=== PATIENT | female | born 1945 | race Caucasian/White ===

== ENCOUNTER → 2017-10-02 16:26 | Outpatient (CLI) | payer MEDICARE, OTHER ==
[2014-04-17 07:33] VITALS: BMI 30.1
[~2017-10-02 16:26] MED LIST: BAYER CHEWABLE81 MG PO; HYDROCHLOROTH12.5 M1 PO; PAXIL20 MG PO; VITAMIN D31000 UNI2 PO
== END | disposition home or self-care (01) ==
LOC: D.MAMMO 11:15
DX: Z12.31 Encounter for screening mammogram for malignant neoplasm of breast (principal)

== ENCOUNTER → 2017-11-02 10:54 | Outpatient (CLI) | payer MEDICARE, OTHER ==
[2014-04-17 07:33] VITALS: BMI 30.1
== END | disposition home or self-care (01) ==
LOC: D.MAMMO 10:54
DX: N63.22 Unspecified lump in the left breast, upper inner quadrant (principal)

== ENCOUNTER 2018-01-08 08:00 | Outpatient (CLI) | payer MEDICARE, OTHER ==
[2014-04-17 07:33] VITALS: BMI 30.1
== END 2018-01-08 23:59 | disposition home or self-care (01) ==
LOC: D.US 08:00
DX: N64.4 Mastodynia (principal)

== ENCOUNTER 2018-05-03 08:00 | Outpatient (CLI) | payer MEDICARE, OTHER ==
[2014-04-17 07:33] VITALS: BMI 30.1
== END 2018-05-03 09:00 | disposition home or self-care (01) ==
LOC: D.MAMMO 08:00
DX: R92.8 Other abnormal and inconclusive findings on diagnostic imaging of breast (principal)

== ENCOUNTER → 2018-05-27 16:35 | Outpatient (CLI) | payer MEDICARE, OTHER ==
[2014-04-17 07:33] VITALS: BMI 30.1
== END | disposition home or self-care (01) ==
LOC: D.MAMMO 08:00
DX: R92.8 Other abnormal and inconclusive findings on diagnostic imaging of breast (principal)

== ENCOUNTER → 2018-09-20 15:30 | Outpatient (CLI) | payer MEDICARE, OTHER ==
[2014-04-17 07:33] VITALS: BMI 30.1
== END | disposition home or self-care (01) ==
LOC: D.MAMMO 10:00
PROVIDERS: ATTEND Family Medicine
DX: Z85.3 Personal history of malignant neoplasm of breast (principal)

== ENCOUNTER → 2019-01-19 22:02 | Outpatient (CLI) | payer MEDICARE, OTHER ==
[2014-04-17 07:33] VITALS: BMI 30.1
== END | disposition home or self-care (01) ==
LOC: D.LABREF 22:02
PROVIDERS: ATTEND Urology
DX: R82.90 Unspecified abnormal findings in urine (principal)

== ENCOUNTER → 2019-02-21 17:31 | Outpatient (CLI) | payer MEDICARE, OTHER ==
[2014-04-17 07:33] VITALS: BMI 30.1
== END | disposition home or self-care (01) ==
LOC: D.LABREF 17:31
PROVIDERS: ATTEND Urology
DX: R31.9 Hematuria, unspecified (principal)

== ENCOUNTER → 2019-03-30 18:22 | Outpatient (CLI) | payer MEDICARE, OTHER ==
[2014-04-17 07:33] VITALS: BMI 30.1
[~2019-03-30 18:22] MED LIST changes: +COZAAR50 MG PO; +FLUTICASONE PRO16 GM NASAL; +OXYBUTYNIN CHLOR5 M1 PO
== END | disposition home or self-care (01) ==
LOC: D.LABREF 18:22
PROVIDERS: ATTEND Urology
DX: R31.9 Hematuria, unspecified (principal)

== ENCOUNTER → 2019-04-13 19:31 | Outpatient (CLI) | payer MEDICARE, OTHER ==
[2014-04-17 07:33] VITALS: BMI 30.1
== END | disposition home or self-care (01) ==
LOC: D.LABREF 19:31
PROVIDERS: ATTEND Urology
DX: Z00.00 Encounter for general adult medical examination without abnormal findings (principal)

== ENCOUNTER → 2019-05-06 13:51 | Outpatient (CLI) | payer MEDICARE, OTHER ==
[2014-04-17 07:33] VITALS: BMI 30.1
== END | disposition home or self-care (01) ==
LOC: D.LABREF 13:51
PROVIDERS: ATTEND Urology
DX: D72.0 Genetic anomalies of leukocytes (principal); R31.9 Hematuria, unspecified

== ENCOUNTER 2019-06-02 06:50 | Day surgery (SDC) | payer MEDICARE, OTHER ==
[2019-05-31 15:21] LABS: BASOPHILS 0.3 % (0-2); EOSINOPHILS 2.6 % (0-7); HEMATOCRIT 38.5 % (36.0-48.0); HEMOGLOBIN 12.6 g/dL (12-16); LYMPHOCYTES 30.2 % (15-50); MCH 30.6 pg (26.0-34.0); MCHC 32.7 g/dL (31.0-37.0); MCV 93.4 fL (80.0-100.0); MEAN PLATELET VOLUME 9.7 fL (7.4-10.4); MONOCYTES 8.4 % (2-11); NEUTROPHILS 58.5 % (40-80); PLATELET COUNT 231 10x3/uL (130-400); RBC 4.12 10x6/uL (4.00-5.40); WBC 6.7 10x3/uL (4.8-10.8)
[2019-05-31 15:47] LABS: ANION GAP 10.7 mmol/L (8-16); CALCIUM 8.6 mg/dL (8.5-10.1); CARBON DIOXIDE 31.4 mmol/L (21.0-32.0); POTASSIUM - SERUM 3.1 mmol/L (3.5-5.1)
[~2019-06-02] VITALS: Ht 147.3 cm; Wt 69.9 kg
[2019-06-02 08:47] VITALS: BP 147/76; Ht 147.3 cm; Wt 69.9 kg
[2019-06-02 10:21] LABS: INR 1.02 (0.85-1.17); PROTIME 12.9 SECONDS (11.6-15.0)
[2019-06-02 10:22] LABS: APTT 27.6 SECONDS (22.8-39.4)
--- NOTE | 2019-06-02 13:41 | NUR ---
1322-REC'D FROM SURGERY. AWAKE AND ALERT WITHOUT COMPLAINTS OF PAIN.VSS. DRESSING TO BACK CDI.IV PATENT TO LEFT ARM AT KVO.CL IN EASY REACH. FRIEND AT BEDSIDE. FULL LIQUID TRAY TO ROOM.
--- NOTE | 2019-06-02 15:44 | NUR ---
1345-TOLERATED FULL LIQUID TRAY. DENIES PAIN.BELT AND DRESSING CDI TO ABD AND BACK. VSS. ABLE TO AMBULATE WITH SLOW STEADY GAIT TO RESTROOM AND URINATE WITHOUT COMPLICATIONS. REMOVED IV FROM LEFT ARM WITH CATH INTACT, DISPOSED INTO SHARPS,COVERED SITE WITH COTTON BALL SECURED WITH TAPE.
--- NOTE | 2019-06-02 15:45 | NUR ---
1400-REVIEWED POST OPERATIVE INSTRUCTIONS AND FOLLOW UP APPOINTMENT WITH PT. VERBALIZED UNDERSTANDING WITHOUT FURTHER QUESTIONS OR CONCERNS.
--- NOTE | 2019-06-02 15:46 | NUR ---
1415- DISCHARGE CRITERIA MET.ESCORTED PT OUT VIA W/C WITH SISTER AWAITING TO DRIVE HOME.STABLE,BELT IN PLACE TO ABD CDI,DRESSING CDI.
--- NOTE | 2019-06-02 16:18 | OP ---
PATIENT NAME: NORI TINSLEY MEDICAL RECORD: [id number] :45 [facility] DATE: SURGEON: DENIS DE LA GARZA MD DATE OF OPERATION: 06/02/2019 SURGEON: Denis De La Garza MD ANESTHESIA: TIVA by Brenda Nash CRNA. DIAGNOSIS: Urge urinary incontinence. PROCEDURE: Axonics stage I. FINDINGS: Good fredrick reflex and toe flexion reflexes from channels 1 to 3 on the left S3 nerve root. ESTIMATED BLOOD LOSS: Minimal. CLINICAL HISTORY: This is a 74-year-old female, who has urge urinary incontinence. She tried Myrbetriq, which did work, but she cannot afford the medication. I then ordered oxybutynin and she cannot afford this. She is not interested in having intravesical Botox injection. Thus, we are trying sacral neuromodulation to try to control the symptoms. SHE IS ALLERGIC TO SULFA AND ADHESIVES. She was given Ancef conservation coordinator to the OR. DESCRIPTION OF PROCEDURE: The patient was placed in prone position and then prepped and draped. Under fluoroscopy, I marked out on the skin the level of the S3 foramen. Also, the line of the role of sacral foramina was marked out along the medial edge. This was done all under fluoroscopic guidance. The skin overlying the S2 foramen was then infiltrated with local anesthetic, which was 0.25% Marcaine with epinephrine. We then used spinal needle to get into the S3 foramen and S3 nerve root on each side. We tested the right side extensively and it did not provide as good response as the left side. Therefore, we decided to go with the left S3 nerve root. We made a small incision at the level of the skin adjacent to the needle. The stylet of the spinal needle was removed. An extra-long stylet was inserted. Once the extra-long stylet was then placed, then the spinal needle was removed entirely. Over the extra-long stylet, we inserted the trocar dilator. The tip of the trocar dilator sheath was placed at the mid sacral level. This was on the lateral view. The extra-long stylet and the dilator were removed, leaving the sheath in place. We then introduced a curved permanent electrode. The curve was placed so that the lead points laterally. Initially, we placed it into the sheath and down adjacent to the nerve with channel number 3 being at the level of the anterior plate of the sacral bone. We tested the channels in sequence. Channel 0 did not give any response. Channel 1 initially did not give any response in this position. Only channel 3 gave an adequate response. Under fluoroscopic guidance, we pulled the lead back so that channel 2 would be where channel 3 was. This gave a far more satisfactory response, but only channel 2 and 3 were responding in this case. Finally, we pulled back, so that channel 1 is adjacent to the anterior plate of the sacral bone. Now, we had adequate response in channels 1, 2 and 3. There was never a response to channel 0. At this point, the patient's permanent pacemaker implantation site was marked out about 4 cm distal or caudad to the iliac crest on the right side. A small 1 cm incision was made here. The tunneling device was used to bring the distal end of the permanent electrode from its insertion into the sacral foramen, into this new site in the right OPERATIVE REPORT [id number] NORI TINSLEY iliac crest region. Here the distal end of the lead was then connected to the temporary test electrode. A tunneling device was again used to bring the end of the temporary test electrode out through a separate skin incision. The wounds were then irrigated out with normal saline. A conduction testing revealed that there were no short circuits in any of the leads. There were no open circuits in any of leads except for channel 0. Channel 0 has electrical contact, but there is no response in terms of voltage potentials or current being applied. The site of the connection between the permanent and temporary electrodes was buried in the subcutaneous fat and the incision near the right iliac crest. A 2 layer closure was done here with the first layer being of 3-0 Vicryl. This brought the subcutaneous fat together. Then, a running subcuticular stitch was placed with 4-0 Monocryl to close this incision. The rest of the skin incisions were closed using simple interrupted 4-0 Monocryl. The patient will be keeping a voiding diary. I will see her in followup next week to check on her response to the sacral neuromodulation. TRANSINT:[id number] Voice Confirmation ID: [id number] DOCUMENT ID: [id number] DENIS DE LA GARZA MD at 1614 CC: [id number] DICTATION DATE: 06/02/19 1523 WHEEL ASSEMBLER: 06/02/19 1525 [facility] SDC 06/02/19 [facility] [address] [place] [address]
== END 2019-06-02 14:15 | disposition home or self-care (01) ==
LOC: D.OPS 06:50 → D.PAN 12:00 → D.OPS 12:00 → D.PAN 12:50 → D.OPS 14:15
PROVIDERS: Anesthesiology; ATTEND Urology
DX: N39.41 Urge incontinence (principal); I10 Essential (primary) hypertension; K80.20 Calculus of gallbladder without cholecystitis without obstruction

== ENCOUNTER → 2019-06-08 18:38 | Outpatient (CLI) | payer MEDICARE, OTHER ==
[2019-06-02 08:47] VITALS: BMI 32.2
== END | disposition home or self-care (01) ==
LOC: D.LABREF 18:38
PROVIDERS: ATTEND Urology
DX: R31.9 Hematuria, unspecified (principal)

== ENCOUNTER 2019-06-09 05:24 | Day surgery (SDC) | payer MEDICARE, OTHER ==
[~2019-06-09] VITALS: Ht 147.3 cm; Wt 69.4 kg
[2019-06-09 05:39] LABS: HEMATOCRIT 38.5 % (36.0-48.0); HEMOGLOBIN 12.3 g/dL (12-16); MCH 29.9 pg (26.0-34.0); MCHC 31.9 g/dL (31.0-37.0); MCV 93.7 fL (80.0-100.0); MEAN PLATELET VOLUME 9.1 fL (7.4-10.4); RBC 4.11 10x6/uL (4.00-5.40); RDW 13.9 % (11.5-14.5); WBC 6.1 10x3/uL (4.8-10.8)
[2019-06-09 06:28] VITALS: BP 162/77; Ht 147.3 cm; Wt 69.4 kg
--- NOTE | 2019-06-09 09:28 | NUR ---
0901-REC'D FROM RR. AWAKE AND ALERT.VSS. DRESSINGS X TO BACK AND UPPER GM CDI. IV PATENT TO RIGHT WRIST CDI. COFFEE AT BEDSIDE. CL IN EASY REACH,SISTER AT BEDSIDE.
--- NOTE | 2019-06-09 09:29 | NUR ---
0960-FULL LIQUID TRAY TO ROOM.
--- NOTE | 2019-06-09 10:18 | OP ---
PATIENT NAME: NORI TINSLEY MEDICAL RECORD: [id number] :45 [facility] DATE: SURGEON: DENIS DE LA GARZA MD DATE OF OPERATION: 06/09/2019 SURGEON: Denis De La Garza MD ANESTHESIA: General anesthesia by Thong Krueger CRNA. DIAGNOSIS: Urge urinary incontinence. PROCEDURES: Axonics stage II. BLOOD LOSS: None. CLINICAL HISTORY: This is a 74-year-old female with urge urinary incontinence. She failed medical therapy. She did not want to have intravesical Botox. She had an Axonics stage I trial last week and this was extremely successful. She no longer has any incontinence. She is able to sleep through the night with maybe nocturia times 1. She wished to proceed to the permanent implant. SHE IS ALLERGIC TO ADHESIVE TAPE AND SULFA. She was given Ancef logistics solution manager to the OR. DESCRIPTION OF PROCEDURE: The patient was given induction of general anesthesia in supine position. She was then placed into the prone position. She was then prepped and draped. There is an incision in the region close to the right iliac crest where the temporary electrode was connected to the permanent electrode. This incision was reopened after infiltrating the skin around the incision with local anesthetic, which is 0.25% Marcaine with epinephrine. The lead was fished out using a right angle clamp. The connection between the temporary electrode and the permanent electrode was disrupted by loosening the locking screw. The temporary lead was then entirely removed. The permanent electrode was then inserted into the pacemaker and the connection was tightened by tightening down the locking screw. A torque-limiting screwdriver was used to make this connection. A subcutaneous pocket was then made medial to the incision. Using the blade over an Army-Sullivan retractor. The pacemaker was then slid underneath this retractor blade into the subcutaneous pocket. We then performed telemetry on the unit and everything was functioning properly and the leads were conducting properly. The wound was then washed with normal saline and a 2-layer closure was performed. The first layer was of simple interrupted 3-0 Vicryl. The second layer was of running subcuticular 4-0 Monocryl. A Band-Aid was applied over the incision. I will see the patient in followup next week to check on the wound healing. TRANSINT:[id number] Voice Confirmation ID: [id number] DOCUMENT ID: [id number] DENIS DE LA GARZA MD at 1018 CC: [id number] DICTATION DATE: 06/09/1942 PET WALKER: 06/09/19928 [address] [place] [address]
--- NOTE | 2019-06-09 10:48 | NUR ---
1000-DISCHARGE CRITERIA MET. REMOVED IV FROM RIGHT WRIST WITH CATH INTACT. DISPOSED INTO SHARPS,COVERED SITE WITH BANDAID,SECURED WITH MEDIPORE TAPE. AWAITING FOR STIMULATOR TEAM TO REVIEW INFORMATION WITH PT.
--- NOTE | 2019-06-09 10:51 | NUR ---
1017-REVIEWED POST OPERATIVE INSTRUCTIONS AND FOLLOW APPOINTMENT WITH PT. VERBALIZED UNDERSTANDING. CONTINUE TO AWAIT FOR STIMULATOR TEAM TO REVIEW WITH PT. VSS.CL IN EASY REACH. SISTER AT BEDSIDE.
== END 2019-06-09 10:47 | disposition home or self-care (01) ==
LOC: D.OPS 05:24 → D.PAN 07:30 → D.OPS 10:47
PROVIDERS: Anesthesiology; ATTEND Urology
DX: N39.41 Urge incontinence (principal); I10 Essential (primary) hypertension

== ENCOUNTER 2020-01-18 16:06 | Emergency (ER) | payer MEDICARE, OTHER ==
[~2020-01-18] VITALS: Ht 147.3 cm; Wt 69.5 kg
[2020-01-18 16:17] VITALS: Ht 147.3 cm; Wt 69.5 kg
[2020-01-18] MEDS ORDERED: NAPROSYN500 MG PO (17:43)
[2020-01-18 18:06] VITALS: BP 165/61
== END 2020-01-18 18:06 | disposition home or self-care (01) ==
LOC: D.ER 16:06
DX: M25.561 Pain in right knee (principal); S89.91XA Unspecified injury of right lower leg, initial encounter; V89.2XXA Person injured in unspecified motor-vehicle accident, traffic, initial encounter; Y93.9 Activity, unspecified; Y92.9 Unspecified place or not applicable; I10 Essential (primary) hypertension

== ENCOUNTER 2020-02-02 18:45 | Inpatient (IN) | payer MEDICARE, OTHER ==
[~2020-02-02] VITALS: Ht 147.3 cm; Wt 69.4 kg
[~2020-02-02 18:45] MED LIST changes: +NAPROSYN500 MG PO
[2020-02-02 20:21] LABS: BASOPHILS 0.3 % (0-2); EOSINOPHILS 4.4 % (0-7); IMMATURE GRANULOCYTES 0.1 % (0-5); LYMPHOCYTES 23.7 % (15-50); MCH 29.6 pg (26.0-34.0); MCHC 31.4 g/dL (31.0-37.0); MCV 94.3 fL (80.0-100.0); MEAN PLATELET VOLUME 9.4 fL (7.4-10.4); MONOCYTES 11.1 % (2-11); NEUTROPHILS 60.4 % (40-80); RBC 3.71 10x6/uL (4.00-5.40); RDW 13.1 % (11.5-14.5); WBC 7.8 10x3/uL (4.8-10.8)
[2020-02-02 20:35] LABS: ANION GAP 10.3 mmol/L (8-16); CALCIUM 8.2 mg/dL (8.5-10.1); CARBON DIOXIDE 30.1 mmol/L (21.0-32.0); CREATININE - SERUM 0.8 mg/dL (0.6-1.3); POTASSIUM - SERUM 3.4 mmol/L (3.5-5.1)
[2020-02-02 20:41] LABS: ALBUMIN 3.3 g/dL (3.4-5.0); BILIRUBIN - TOTAL 0.41 mg/dL (0.2-1.3); PROTEIN - SERUM 6.9 g/dL (6.4-8.2)
[2020-02-02 20:48] LABS: PLATELET COUNT 293 10x3/uL (130-400)
[2020-02-02 21:00] VITALS: BP 177/86
[2020-02-02 22:33] VITALS: BP 161/74
--- NOTE | 2020-02-02 23:00 | NUR ---
PATIENT ARRIVE ON FLOOR VIA WHEELCHAIR. NO S/S OF ACUTE DISTRESS. NO C/O AT THIS TIME. PATIENT HAS LEFT FOREARM, SALINE LOC. IV IS PATENT WITHOUT REDNESS, SWELLING, OR TENDERNESS. PATIENT RIGHT LOWER LEG IS RED AND HAS EDEMA. CALL LIGHT WITHIN REACH. WILL CONTINUE TO MONITOR.
[2020-02-02 23:10] VITALS: BP 137/66; BMI 32.0
[2020-02-03] VITALS: BP 137/66
--- NOTE | 2020-02-03 02:04 | NUR ---
I have reviewed this patient and I concur with the Shift Assessment completed by the Licensed Practical Nurse today this shift.
[2020-02-03 04:00] VITALS: BP 110/59
[2020-02-03 05:57] LABS: BASOPHILS 0.3 % (0-2); EOSINOPHILS 3.9 % (0-7); HEMOGLOBIN 9.9 g/dL (12-16); IMMATURE GRANULOCYTES 0.2 % (0-5); LYMPHOCYTES 23.6 % (15-50); MCH 29.3 pg (26.0-34.0); MCHC 30.9 g/dL (31.0-37.0); MCV 94.7 fL (80.0-100.0); MEAN PLATELET VOLUME 9.5 fL (7.4-10.4); MONOCYTES 9.7 % (2-11); NEUTROPHILS 62.3 % (40-80); PLATELET COUNT 302 10x3/uL (130-400); RBC 3.38 10x6/uL (4.00-5.40); RDW 13.4 % (11.5-14.5); WBC 5.9 10x3/uL (4.8-10.8)
[2020-02-03 07:08] LABS: % SATURATION 13 % (15-55); IRON 34 ug/dl (35-150); TOTAL IRON BIND CAPACITY 249 ug/dl (260-445); UNSAT IRON BIND CAPACITY 215 ug/dl (150-375)
[2020-02-03 07:13] LABS: ALBUMIN 2.7 g/dL (3.4-5.0); ANION GAP 10.5 mmol/L (8-16); BILIRUBIN - TOTAL 0.44 mg/dL (0.2-1.3); CALCIUM 7.9 mg/dL (8.5-10.1); CARBON DIOXIDE 30.1 mmol/L (21.0-32.0); CREATININE - SERUM 0.8 mg/dL (0.6-1.3); POTASSIUM - SERUM 3.6 mmol/L (3.5-5.1); PROTEIN - SERUM 5.8 g/dL (6.4-8.2)
--- NOTE | 2020-02-03 07:15 | NUR ---
REC'D IN BED AWAKE AND ALERT. RESP EVEN AND UNLABORED WITH NO DISTRESS NOTED. CAN EXPRESS NEEDS AND WANTS. NO C/O NOTED OR VOICED. ASSESSMENT COMPLETED. STAND BY ASSISTANCE TO BATHROOM. C/L IN REACH AT BEDSIDE.
[2020-02-03 08:55] VITALS: BP 136/66
[2020-02-03 12:29] LABS: GLUCOSE NEGATIVE (NEGATIVE); NITRITE NEGATIVE (NEGATIVE)
[2020-02-03 12:30] LABS: BILIRUBIN NEGATIVE (NEGATIVE); KETONE NEGATIVE (NEGATIVE); UROBILINOGEN NORMAL (NORMAL)
[2020-02-03 12:31] LABS: EPITHELIAL CELLS 0-5 /hpf (0-5); RED CELLS - URINE 0-5 /hpf (0-5); WHITE CELLS - URINE 0-5 /hpf (NEGATIVE)
[2020-02-03 12:32] LABS: AMORPHOUS SEDIMENT >1+ /lpf (NONE SEEN)
[2020-02-03 13:05] VITALS: BP 114/53
--- NOTE | 2020-02-03 15:44 | NUR ---
WAS MEDICATED WITH MORPHINE FOR C/O RIGHT LEG PAIN. C/L IN REACH AT BEDSIDE.
[2020-02-03 16:57] VITALS: BP 131/67
--- NOTE | 2020-02-03 18:45 | NUR ---
I have reviewed this patient and I concur with the Shift Assessment completed by the Licensed Practical Nurse today this shift.
[2020-02-03 22:06] VITALS: BP 162/52
[2020-02-04] VITALS: BP 139/56
[2020-02-04 04:00] VITALS: BP 153/64
--- NOTE | 2020-02-04 04:38 | NUR ---
I have reviewed this patient and I concur with the Shift Assessment completed by the Licensed Practical Nurse today this shift.
[2020-02-04 06:13] LABS: BASOPHILS 0.2 % (0-2); EOSINOPHILS 3.7 % (0-7); HEMATOCRIT 32.3 % (36.0-48.0); HEMOGLOBIN 9.8 g/dL (12-16); IMMATURE GRANULOCYTES 0.2 % (0-5); LYMPHOCYTES 29.1 % (15-50); MCH 29.3 pg (26.0-34.0); MCHC 30.3 g/dL (31.0-37.0); MCV 96.4 fL (80.0-100.0); MEAN PLATELET VOLUME 9.3 fL (7.4-10.4); MONOCYTES 8.2 % (2-11); NEUTROPHILS 58.6 % (40-80); PLATELET COUNT 268 10x3/uL (130-400); RBC 3.35 10x6/uL (4.00-5.40); RDW 13.4 % (11.5-14.5); WBC 5.7 10x3/uL (4.8-10.8)
[2020-02-04 06:35] LABS: ALBUMIN 2.8 g/dL (3.4-5.0); ANION GAP 9.5 mmol/L (8-16); BILIRUBIN - TOTAL 0.47 mg/dL (0.2-1.3); CALCIUM 8.1 mg/dL (8.5-10.1); CARBON DIOXIDE 31.1 mmol/L (21.0-32.0); CREATININE - SERUM 0.9 mg/dL (0.6-1.3); POTASSIUM - SERUM 3.6 mmol/L (3.5-5.1)
--- NOTE | 2020-02-04 07:51 | NUR ---
ALERT AND ORIENTED. LUNGS CLEAR BILATERALLY. HEART SOUNDS S1 AND S2 HEARD IN ALL KELLER. BOWEL SOUNDS ACTIVE X 4. IV TO RFA PATENT WITHOUT REDNESS. CELLULITIS NOTED TO RLE. PROPPED IN PILLOWS X 3 WITH ICE PACKS. DENIES NEEDS. BED LOW. CALL ANDERSON AND PERSONAL ITEMS IN REACH. WILL CONTINUE TO MONITOR.
[2020-02-04 09:49] VITALS: BP 174/77
[2020-02-04 13:58] VITALS: BP 168/76
--- NOTE | 2020-02-04 14:15 | NUR ---
KPAD PLACED ON PATIENTS RIGHT LOWER LEG PER ORDER.
--- NOTE | 2020-02-04 16:13 | NUR ---
RESTING IN BED, NO DISTRESS NOTED, K PAD TO R LOWER LEG, CONT TO MONITOR PAIN, AND SWELLING
[2020-02-04 18:04] VITALS: BP 159/84
[2020-02-04 20:58] VITALS: BP 156/66
--- NOTE | 2020-02-05 00:20 | NUR ---
ALERT AND ORENTED X4 ABLE TO VOICE NEEDS AND WANTS TO STAFF. IV TO RIGHT FOREARM INTACT WITH NS PER ORDERS. UP WITH ASSIST. MORPHINR PRN FOR PAIN CONTROL. HAS LEFT BREAST REMOVED (OLD). FROM BREAST CANCER. ON ROOM AIR. RESTING IN BED AT THIS TIME WITH WATER AND CALL LIGHT IN REACH. NO NEEDS AT THIS TIME.
[2020-02-05 00:44] VITALS: BP 119/63
[2020-02-05 05:48] LABS: BASOPHILS 0.3 % (0-2); EOSINOPHILS 4.1 % (0-7); HEMATOCRIT 31.1 % (36.0-48.0); HEMOGLOBIN 9.7 g/dL (12-16); IMMATURE GRANULOCYTES 0.2 % (0-5); LYMPHOCYTES 22.6 % (15-50); MCH 29.8 pg (26.0-34.0); MCHC 31.2 g/dL (31.0-37.0); MCV 95.4 fL (80.0-100.0); MEAN PLATELET VOLUME 9.5 fL (7.4-10.4); MONOCYTES 9.2 % (2-11); NEUTROPHILS 63.6 % (40-80); PLATELET COUNT 263 10x3/uL (130-400); RBC 3.26 10x6/uL (4.00-5.40); RDW 13.3 % (11.5-14.5); WBC 5.8 10x3/uL (4.8-10.8)
[2020-02-05 06:00] LABS: ALBUMIN 2.8 g/dL (3.4-5.0); ALKALINE PHOSPHATASE 66 U/L (30-120); ALT (SGPT) 27 U/L (10-68); BILIRUBIN - TOTAL 0.41 mg/dL (0.2-1.3); CALC OSMOLALITY 284 mosm/kg (275-300); CARBON DIOXIDE 31.7 mmol/L (21.0-32.0); CHLORIDE - SERUM 107 mmol/L (98-107); CREATININE - SERUM 0.7 mg/dL (0.6-1.3); GLUCOSE 118 mg/dL (74-106); POTASSIUM - SERUM 3.3 mmol/L (3.5-5.1); SODIUM 143 mmol/L (136-145); eGFR NON AFRICAN AMERICAN 87 mL/min (90-120)
[2020-02-05 06:01] LABS: UREA NITROGEN 9 mg/dL (7-18)
--- NOTE | 2020-02-05 08:31 | NUR ---
RESTING IN BED, NO DISTRESS NOTED, IV INFUSING PER RFA, RIGHT LEG ELEVATED ON PILLOWS, REDDNESS AND EDEMA CONT
[2020-02-05 08:43] VITALS: BP 163/94
[2020-02-05 13:17] VITALS: BP 163/78
[2020-02-05 18:52] VITALS: BP 192/72
[2020-02-05 22:38] VITALS: BP 167/77
[2020-02-06 03:55] VITALS: BP 154/69
[2020-02-06 06:03] LABS: BASOPHILS 0.5 % (0-2); EOSINOPHILS 5.4 % (0-7); HEMATOCRIT 31.8 % (36.0-48.0); IMMATURE GRANULOCYTES 0.2 % (0-5); LYMPHOCYTES 28.4 % (15-50); MCH 29.2 pg (26.0-34.0); MCHC 31.4 g/dL (31.0-37.0); MEAN PLATELET VOLUME 9.2 fL (7.4-10.4); MONOCYTES 9.2 % (2-11); NEUTROPHILS 56.3 % (40-80); PLATELET COUNT 290 10x3/uL (130-400); RBC 3.42 10x6/uL (4.00-5.40); RDW 13.3 % (11.5-14.5); WBC 5.8 10x3/uL (4.8-10.8)
[2020-02-06 06:37] LABS: ALBUMIN 2.8 g/dL (3.4-5.0); ALKALINE PHOSPHATASE 67 U/L (30-120); ALT (SGPT) 24 U/L (10-68); BILIRUBIN - TOTAL 0.53 mg/dL (0.2-1.3); CALC OSMOLALITY 280 mosm/kg (275-300); CALCIUM 8.5 mg/dL (8.5-10.1); CARBON DIOXIDE 29.2 mmol/L (21.0-32.0); CHLORIDE - SERUM 107 mmol/L (98-107); CREATININE - SERUM 0.7 mg/dL (0.6-1.3); GLUCOSE 104 mg/dL (74-106); PROTEIN - SERUM 6.1 g/dL (6.4-8.2); SODIUM 142 mmol/L (136-145); UREA NITROGEN 7 mg/dL (7-18); eGFR NON AFRICAN AMERICAN 87 mL/min (90-120)
[2020-02-06 06:39] LABS: POTASSIUM - SERUM 3.1 mmol/L (3.5-5.1)
--- NOTE | 2020-02-06 07:23 | NUR ---
RECEIVED REPORT, ASSUMED CARE, UP TO BATHROOM, DENIES NEEDS, CALL LIGHT IN REACH, BREATHING EVEN UNLBAORED, NO S/S OF DISTRESS NOTED
[2020-02-06 09:10] VITALS: BP 135/64
[2020-02-06 10:55] VITALS: Ht 147.3 cm; Wt 69.4 kg
[2020-02-06 11:54] VITALS: BP 111/60
--- NOTE | 2020-02-06 16:20 | MORECARE ---
CASE MANAGEMENT DISCHARGE SUMMARY PATIENT: NORI TINSLEY UNIT: [id number] ADM DATE: 02/02/20 AGE: 74 : 45 SEX: F ROOM/BED: D.2227 AUTHOR: VICKEY TERRAZAS PHYSICIAN: REFERRING PHYSICIAN: SAGRARIO MENDIOLA MD DATE OF SERVICE: 02/06/20 Discharge Plan Patient Name: NORI TINSLEY Facility: [facility]:[place] : 1945 Planned Disposition: Anticipated Discharge Date: Discharge Date: Expected LOS: Initial Reviewer: [email or web address] Initial Review Date: 02/06/2020 Generated: 02/06/20 5:20 pm Patient Name: NORI TINSLEY Page [id number] at 1620 All edits/amendments must be made on the electronic document DICTATION DATE: 02/06/201619 FURNACE INSTALLER: LEONARD 02/06/201619 RPT#: [id number] DC DATE: STATUS: ADM IN [facility] [address] [place] [address] END OF REPORT
[2020-02-06 16:22] VITALS: BP 183/72
--- NOTE | 2020-02-06 16:27 | MORECARE ---
CASE MANAGEMENT DISCHARGE SUMMARY PATIENT: NORI TINSLEY UNIT: [id number] ADM DATE: 02/02/20 AGE: 74 : 45 SEX: F ROOM/BED: D.2227 AUTHOR: VICKEY TERRAZAS PHYSICIAN: REFERRING PHYSICIAN: SAGRARIO MENDIOLA MD DATE OF SERVICE: 02/06/20 Discharge Plan Patient Name: NORI TINSLEY Facility: [facility]:[place] : 1945 Planned Disposition: Anticipated Discharge Date: Discharge Date: Expected LOS: Initial Reviewer: [email or web address] Initial Review Date: 02/06/2020 Generated: 02/06/20 5:27 pm Comments DCP- Discharge Planning Updated by [email or web address]: Zaira Forbes on 02/06/20 3:[address] Patient Name: NORI TINSLEY Admission Status: ER Accout number: [id number] Admission Date: 02-02-2020 : 1945 Admission Diagnosis: Attending: VIOLA Current LOS: 4 Anticipated DC Date: Planned Disposition: Primary Insurance: MEDICARE A & B Discharge Planning Comments: CM met with patient at bedside after explaining CM role and obtaining verbal consent. CM discussed availability / needs of home health, REHAB and medical equipment. PATIENT DENIES ANY DISCHARGE NEEDS AT THIS TIME. IMM SIGNED. WILL RECHECK WITH PATIENT CLOSER TO DC FOR ANY OTHER NEEDS. Massage Operator: Zaira Forbes DCPIA - Discharge Planning Initial Assessment Updated by [email or web address]: Zaira Forbes on 02/06/20 4:25 pm * Is the patient Alert and Oriented? Yes * PCP [facility]ICKSON * Pharmacy [facility] * Preadmission Environment Home with Family * ADLs Independent * Equipment None * Community resources currently utilized None * Additional services required to return to the preadmission environment? No * Can the patient safely return to the preadmission environment? Yes * Has this patient been hospitalized within the prior 30 days at any hospital? No Last DP export: 02/06/20 3:20 p Patient Name: NORI TINSLEY Page [id number] at 1627 All edits/amendments must be made on the electronic document DICTATION DATE: 02/06/201626 FISH STRINGER ASSEMBLER: DM 02/06/201626 RPT#: [id number] DC DATE: STATUS: ADM IN [facility] [address] [place] [address] END OF REPORT
--- NOTE | 2020-02-06 16:36 | MORECARE ---
CASE MANAGEMENT DISCHARGE SUMMARY PATIENT: NORI TINSLEY UNIT: [id number] ADM DATE: 02/02/20 AGE: 74 : 45 SEX: F ROOM/BED: D.2227 AUTHOR: VICKEY TERRAZAS PHYSICIAN: REFERRING PHYSICIAN: SAGRARIO MENDIOLA MD DATE OF SERVICE: 02/06/20 Discharge Plan Patient Name: NORI TINSLEY Facility: [facility]:[place] : 1945 Planned Disposition: Anticipated Discharge Date: Discharge Date: Expected LOS: Initial Reviewer: [email or web address] Initial Review Date: 02/06/2020 Generated: 02/06/20 5:35 pm Comments DCP- Discharge Planning Updated by [email or web address]: Zaira Forbes on 02/06/20 3:[address] Patient Name: NORI TINSLEY Admission Status: ER Accout number: [id number] Admission Date: 02-02-2020 : 1945 Admission Diagnosis: Attending: VIOLA Current LOS: 4 Anticipated DC Date: Planned Disposition: Primary Insurance: MEDICARE A & B Discharge Planning Comments: CM met with patient at bedside after explaining CM role and obtaining verbal consent. CM discussed availability / needs of home health, REHAB and medical equipment. PATIENT DENIES ANY DISCHARGE NEEDS AT THIS TIME. IMM SIGNED. WILL RECHECK WITH PATIENT CLOSER TO DC FOR ANY OTHER NEEDS. Planer Operator / Grader: Zaira Forbes DCPIA - Discharge Planning Initial Assessment Updated by [email or web address]: Zaira Forbes on 02/06/20 4:25 pm * Is the patient Alert and Oriented? Yes * PCP ERICKSON * Pharmacy [facility] * Preadmission Environment Home with Family * ADLs Independent * Equipment None * Community resources currently utilized None * Additional services required to return to the preadmission environment? No * Can the patient safely return to the preadmission environment? Yes * Has this patient been hospitalized within the prior 30 days at any hospital? No Last DP export: 02/06/20 3:28 p Patient Name: NORI TINSLEY Page [id number] at 1636 All edits/amendments must be made on the electronic document DICTATION DATE: 02/06/201634 NIPPING MACHINE OPERATOR: DM 02/06/20 163 RPT#: [id number] DC DATE: STATUS: ADM IN [facility] [address] [place] [address] END OF REPORT
--- NOTE | 2020-02-06 18:33 | NUR ---
I have reviewed this patient and I concur with the Shift Assessment completed by the Licensed Practical Nurse today this shift.
[2020-02-06 20:00] VITALS: BP 168/78
[2020-02-07] VITALS: BP 155/62
[2020-02-07 04:00] VITALS: BP 156/63
[2020-02-07 04:53] LABS: BASOPHILS 0.5 % (0-2); EOSINOPHILS 5.1 % (0-7); HEMATOCRIT 33.3 % (36.0-48.0); HEMOGLOBIN 10.6 g/dL (12-16); IMMATURE GRANULOCYTES 0.2 % (0-5); MCH 29.4 pg (26.0-34.0); MCHC 31.8 g/dL (31.0-37.0); MCV 92.5 fL (80.0-100.0); MEAN PLATELET VOLUME 9.4 fL (7.4-10.4); MONOCYTES 10.9 % (2-11); NEUTROPHILS 58.3 % (40-80); PLATELET COUNT 298 10x3/uL (130-400); RDW 13.2 % (11.5-14.5); WBC 6.4 10x3/uL (4.8-10.8)
[2020-02-07 05:13] LABS: ANION GAP 10.4 mmol/L (8-16); BILIRUBIN - TOTAL 0.44 mg/dL (0.2-1.3); CALCIUM 8.3 mg/dL (8.5-10.1); CARBON DIOXIDE 27.9 mmol/L (21.0-32.0); POTASSIUM - SERUM 3.3 mmol/L (3.5-5.1); PROTEIN - SERUM 6.7 g/dL (6.4-8.2)
[2020-02-07 05:23] LABS: CREATININE - SERUM 0.9 mg/dL (0.6-1.3)
--- NOTE | 2020-02-07 07:35 | NUR ---
REC'D IN BED AWAKE AND ALERT. RESP EVEN AND UNLABORED WITH NO DISTESS NOTED. CAN EXPRESS NEEDS AND WANTS. NO C/O NOTED OR VOICED. ASSESSMENT COMPLETED. C/L IN REACH AT BEDSIDE.
[2020-02-07 09:17] VITALS: BP 176/87
--- NOTE | 2020-02-07 12:12 | NUR ---
I have reviewed this patient and I concur with the Shift Assessment completed by the Licensed Practical Nurse today this shift.
[2020-02-07 14:34] VITALS: BP 174/77
--- NOTE | 2020-02-07 15:00 | NUR ---
Nutrition follow-up: P receiving a regular diet with po intake 100% of some meals Labs reviewed WT: 153# PO intake good at this time RDN following.
[2020-02-07 17:56] VITALS: BP 170/73
--- NOTE | 2020-02-07 19:37 | NUR ---
A&O X 4. SUPINE IN BED. IV COVERED SO PT CAN SHOWER. PT AMBULATING INDEPENDENTLY. DENIES FURTHER NEEDS TRACIE, CTM.
[2020-02-07 20:00] VITALS: BP 182/70
[2020-02-08 04:00] VITALS: BP 149/61
--- NOTE | 2020-02-08 05:35 | NUR ---
I have reviewed this patient and I concur with the Shift Assessment completed by the Licensed Practical Nurse today this shift.
[2020-02-08 06:01] LABS: ALBUMIN 3.1 g/dL (3.4-5.0); ANION GAP 11.6 mmol/L (8-16); BILIRUBIN - TOTAL 0.39 mg/dL (0.2-1.3); CARBON DIOXIDE 26.7 mmol/L (21.0-32.0); CREATININE - SERUM 0.8 mg/dL (0.6-1.3); POTASSIUM - SERUM 3.3 mmol/L (3.5-5.1); PROTEIN - SERUM 6.4 g/dL (6.4-8.2)
[2020-02-08 06:31] LABS: BASOPHILS 0.4 % (0-2); EOSINOPHILS 6.4 % (0-7); HEMATOCRIT 33.6 % (36.0-48.0); HEMOGLOBIN 10.7 g/dL (12-16); IMMATURE GRANULOCYTES 0.2 % (0-5); LYMPHOCYTES 28.6 % (15-50); MCH 29.7 pg (26.0-34.0); MCHC 31.8 g/dL (31.0-37.0); MCV 93.3 fL (80.0-100.0); MEAN PLATELET VOLUME 9.7 fL (7.4-10.4); MONOCYTES 9.5 % (2-11); NEUTROPHILS 54.9 % (40-80); PLATELET COUNT 279 10x3/uL (130-400); RDW 13.5 % (11.5-14.5); WBC 5.5 10x3/uL (4.8-10.8)
--- NOTE | 2020-02-08 07:15 | NUR ---
REC'D IN BED AWAKE AND ALERT. RESP EVEN AND UNLABORED WITH NO DISTRESS NOTED. CAN EXPRESS NEEDS AND WANTS. NO C/O NOTED OR VOICED. ASSESSMENT COMPLETED. UP AB YOSELYN WITH STEADY GAIT. C/L IN REACH AT BEDSIDE.
[2020-02-08 09:01] VITALS: BP 182/86
[2020-02-08 13:36] VITALS: BP 183/74
[2020-02-08 18:41] VITALS: BP 184/69
--- NOTE | 2020-02-08 22:00 | NUR ---
PT ACCIDENTALLY PULLED OUT IV. CATH INTACT. ATTEMPTED TO RESITE X3, PT DOES NOT WITH TO HAVE AN IV. BYRON SINGLETARY CALLED FOR PO BENADRYL FOR RLE ITCHING AND SOMETHING TO HELP STOP DIARRHEA. NO FURTHER NEEDS, CTM.
[2020-02-08 22:20] VITALS: BP 171/68
--- NOTE | 2020-02-09 03:54 | NUR ---
I have reviewed this patient and I concur with the Shift Assessment completed by the Licensed Practical Nurse today this shift.
[2020-02-09 05:44] LABS: HEMOGLOBIN 10.6 g/dL (12-16); LYMPHOCYTES 29.8 % (15-50); MCH 29.7 pg (26.0-34.0); MCHC 32.1 g/dL (31.0-37.0); MCV 92.4 fL (80.0-100.0); MEAN PLATELET VOLUME 9.3 fL (7.4-10.4); NEUTROPHILS 58.4 % (40-80); PLATELET COUNT 287 10x3/uL (130-400); RBC 3.57 10x6/uL (4.00-5.40); RDW 13.3 % (11.5-14.5); WBC 5.5 10x3/uL (4.8-10.8)
[2020-02-09 06:03] LABS: ANION GAP 10.1 mmol/L (8-16); CALCIUM 8.4 mg/dL (8.5-10.1); CARBON DIOXIDE 27.1 mmol/L (21.0-32.0); CREATININE - SERUM 0.8 mg/dL (0.6-1.3); MAGNESIUM - SERUM 1.9 mg/dL (1.8-2.4)
[2020-02-09 06:21] LABS: POTASSIUM - SERUM 3.2 mmol/L (3.5-5.1)
--- NOTE | 2020-02-09 07:55 | NUR ---
REC'D SITTING ON SIDE OF BED AWAKE AND ALERT. RESP EVEN AND UNLABORED WITH NO DISTRESS NOTED. ASSESSMENT COMPLETED. NO C/O NOTED. C/L IN REACH AT BEDSIDE.
--- NOTE | 2020-02-09 07:55 | NUR ---
REC'D IN BED AWAKE AND ALERT. RESP EVEN AND UNLABORED WITH NO DISTRESS NOTED. CAN EXPRESS NEEDS AND WANTS, NO C/O NOTED OR VOICED. UP AB YOSELYN WALKS AROUND ROOM AND OUT IN THE HALLWAY. ASSESSMENT COMPLETED. C/L IN REACH AT BEDSIDE.
[2020-02-09 08:00] VITALS: BP 177/84
--- NOTE | 2020-02-09 10:00 | NUR ---
REFUSED K-PAD AT THIS TIME.
[2020-02-09 12:00] VITALS: BP 155/66
--- NOTE | 2020-02-09 13:59 | NUR ---
HAS BEEN UP IN ROOM. PATIENT IS WITHOUT DISTRESS.CALL LIGHT IN REACH
[2020-02-09 15:32] VITALS: BP 152/65
[2020-02-09] MEDS ORDERED: DOXYCYCLINE HY100 M2 PO (15:46)
[2020-02-09] MEDS ORDERED: ULTRAM50 MG PO (15:49)
--- NOTE | 2020-02-09 16:31 | MORECARE ---
CASE MANAGEMENT DISCHARGE SUMMARY PATIENT: NORI TINSLEY UNIT: [id number] ADM DATE: 02/02/20 AGE: 74 : 45 SEX: F ROOM/BED: D.2227 AUTHOR: NINI,DOC PHYSICIAN: REFERRING PHYSICIAN: SAGRARIO MENDIOLA MD DATE OF SERVICE: 02/09/20 Discharge Plan Patient Name: NORI TINSLEY Facility: [facility]:[place] : 1945 Planned Disposition: Anticipated Discharge Date: Discharge Date: Expected LOS: Initial Reviewer: [email or web address] Initial Review Date: 02/06/2020 Generated: 02/09/20 5:30 pm Comments DCP- Discharge Planning Updated by [email or web address]: Zaira Forbes on 02/09/20 3:[address] Patient Name: NORI TINSLEY Admission Status: ER Accout number: [id number] Admission Date: 02-02-2020 : 1945 Admission Diagnosis:CELLULITIS OF RIGHT LOWER LIMB Attending: VIOLA Current LOS: 7 Anticipated DC Date: Planned Disposition: Primary Insurance: MEDICARE A & B Discharge Planning Comments: SPOKE WITH PATIENT. DENIES ANY DC NEEDS. IMM SIGNED. SISTER IS ON HER WAY AND PATIENT ANTICIPATES DISCHARGE TODAY. Alternative Energy Engineer: Zaira Forbes DCP- Discharge Planning Updated by [email or web address]: Zaira Forbes on 02/06/20 3:[address] Patient Name: NORI TINSLEY Admission Status: ER Accout number: [id number] Admission Date: 02-02-2020 : 1945 Admission Diagnosis: Attending: VIOLA Current LOS: 4 Anticipated DC Date: Planned Disposition: Primary Insurance: MEDICARE A & B Discharge Planning Comments: CM met with patient at bedside after explaining CM role and obtaining verbal consent. CM discussed availability / needs of home health, REHAB and medical equipment. PATIENT DENIES ANY DISCHARGE NEEDS AT THIS TIME. IMM SIGNED. WILL RECHECK WITH PATIENT CLOSER TO DC FOR ANY OTHER NEEDS. Alternative Energy Engineer: Zaira Forbes DCPIA - Discharge Planning Initial Assessment Updated by [id number]: Zaira Forbes on 02/06/20 4:25 pm * Is the patient Alert and Oriented? Yes * PCP ERICKSON * Pharmacy [facility] * Preadmission Environment Home with Family * ADLs Independent * Equipment None * Community resources currently utilized None * Additional services required to return to the preadmission environment? No * Can the patient safely return to the preadmission environment? Yes * Has this patient been hospitalized within the prior 30 days at any hospital? No Coverage Notice Reviewer: [email or web address] Forbes Notice Issued Date-Time: 02/06/2020 16:45 Notice Type: IM Discharge Notice Notice Delivered To: Relationship to Patient: Rfid Strategist Name: Delivery Method: HAND - Hand Delivered Nichole Days: Prior Verbal Notification: Recipient Understood Notice: Yes Recipient Signature: Yes Med Rec Note Co-signed by Attending: Coverage Notice Comment: Reviewer: [email or web address] Devora Forbes Notice Issued Date-Time: 02/09/2020 16:22 Notice Type: IM Discharge Notice Notice Delivered To: Patient Relationship to Patient: Rfid Strategist Name: Delivery Method: HAND - Hand Delivered Nichole Days: Prior Verbal Notification: Recipient Understood Notice: Yes Recipient Signature: Yes Med Rec Note Co-signed by Attending: Coverage Notice Comment: Last DP export: 02/06/20 3:36 p Patient Name: NORI TINSLEY Page [phone] at 1631 All edits/amendments must be made on the electronic document DICTATION DATE: 02/09/20 163 SENIOR QA ENGINEER: LEONARD 02/09/20 163 RPT#: [id number] DC DATE: STATUS: ADM IN [facility] [address] [place] [address] END OF REPORT
--- NOTE | 2020-02-09 17:01 | MORECARE ---
CASE MANAGEMENT DISCHARGE SUMMARY PATIENT: NORI TINSLEY UNIT: [id number] ADM DATE: 02/02/20 AGE: 74 : 45 SEX: F ROOM/BED: D.2227 AUTHOR: NINI,DOC PHYSICIAN: REFERRING PHYSICIAN: SAGRARIO MENDIOLA MD DATE OF SERVICE: 02/09/20 Discharge Plan Patient Name: NORI TINSLEY Facility: [facility]:[place] : 1945 Planned Disposition: Anticipated Discharge Date: Discharge Date: Expected LOS: Initial Reviewer: [email or web address] Initial Review Date: 02/06/2020 Generated: 02/09/20 6:00 pm Comments DCP- Discharge Planning Updated by [email or web address]: Zaira Forbes on 02/09/20 3:[address] Patient Name: NORI TINSLEY Admission Status: ER Accout number: [id number] Admission Date: 02-02-2020 : 1945 Admission Diagnosis:CELLULITIS OF RIGHT LOWER LIMB Attending: VIOLA Current LOS: 7 Anticipated DC Date: Planned Disposition: Primary Insurance: MEDICARE A & B Discharge Planning Comments: SPOKE WITH PATIENT. DENIES ANY DC NEEDS. IMM SIGNED. SISTER IS ON HER WAY AND PATIENT ANTICIPATES DISCHARGE TODAY. Padding Gluer: Zaira Forbes DCP- Discharge Planning Updated by [email or web address]: Zaira Forbes on 02/06/20 3:[address] Patient Name: NORI TINSLEY Admission Status: ER Accout number: [id number] Admission Date: 02-02-2020 : 1945 Admission Diagnosis: Attending: VIOLA Current LOS: 4 Anticipated DC Date: Planned Disposition: Primary Insurance: MEDICARE A & B Discharge Planning Comments: CM met with patient at bedside after explaining CM role and obtaining verbal consent. CM discussed availability / needs of home health, REHAB and medical equipment. PATIENT DENIES ANY DISCHARGE NEEDS AT THIS TIME. IMM SIGNED. WILL RECHECK WITH PATIENT CLOSER TO DC FOR ANY OTHER NEEDS. Padding Gluer: Zaira Forbes DCPIA - Discharge Planning Initial Assessment Updated by [email or web address]: Zaira Forbes on 02/06/20 4:25 pm * Is the patient Alert and Oriented? Yes * PCP [facility]ICKSON * Pharmacy [facility] * Preadmission Environment Home with Family * ADLs Independent * Equipment None * Community resources currently utilized None * Additional services required to return to the preadmission environment? No * Can the patient safely return to the preadmission environment? Yes * Has this patient been hospitalized within the prior 30 days at any hospital? No External Providers External Provider: [facility] Next Contact Date: Service Request Date: Service Type: Resolution: Reviewer: Comments: Coverage Notice Reviewer: [email or web address] Forbes Notice Issued Date-Time: 02/06/2020 16:45 Notice Type: IM Discharge Notice Notice Delivered To: Relationship to Patient: Account Group Supervisor Name: Delivery Method: HAND - Hand Delivered Nichole Days: Prior Verbal Notification: Recipient Understood Notice: Yes Recipient Signature: Yes Med Rec Note Co-signed by Attending: Coverage Notice Comment: Reviewer: [email or web address] Forbes Notice Issued Date-Time: 02/09/2020 16:22 Notice Type: IM Discharge Notice Notice Delivered To: Patient Relationship to Patient: Account Group Supervisor Name: Delivery Method: HAND - Hand Delivered Nichloe Days: Prior Verbal Notification: Recipient Understood Notice: Yes Recipient Signature: Yes Med Rec Note Co-signed by Attending: Coverage Notice Comment: Last DP export: 02/09/20 3:31 p Patient Name: NORI TINSLEY Page [id number] at 1701 All edits/amendments must be made on the electronic document DICTATION DATE: 02/09/201699 STAMP PRESS OPERATOR: LEONARD 02/09/201699 RPT#: [id number] DC DATE: STATUS: ADM IN [facility] [address] [place] [address] END OF REPORT
--- NOTE | 2020-02-09 17:56 | NUR ---
DC HOME AT THIS TIME VOICE UNDERSTANDING OF DC ORDERS. NO IV. HAS ALL PERSONAL BELONGINGS. STABLE UPON DISCHARGE.
--- NOTE | 2020-02-10 10:07 | MORECARE ---
CASE MANAGEMENT DISCHARGE SUMMARY PATIENT: NORI TINSLEY UNIT: [id number] ADM DATE: 02/02/20 AGE: 74 : 45 SEX: F ROOM/BED: D.2227 AUTHOR: NINI,DOC PHYSICIAN: REFERRING PHYSICIAN: SAGRARIO MENDIOLA MD DATE OF SERVICE: 02/10/20 Discharge Plan Patient Name: NORI TINSLEY Facility: [facility]:[place] : 1945 Planned Disposition: Anticipated Discharge Date: Discharge Date: 02/09/2020 Expected LOS: Initial Reviewer: [email or web address] Initial Review Date: 02/06/2020 Generated: 02/10/20 11:06 am Comments DCP- Discharge Planning Updated by [email or web address]: Zaira Forbes on 02/09/20 3:[address] Patient Name: NORI TINSLEY Admission Status: ER Accout number: [id number] Admission Date: 02-02-2020 : 1945 Admission Diagnosis:CELLULITIS OF RIGHT LOWER LIMB Attending: VIOLA Current LOS: 7 Anticipated DC Date: Planned Disposition: Primary Insurance: MEDICARE A & B Discharge Planning Comments: SPOKE WITH PATIENT. DENIES ANY DC NEEDS. IMM SIGNED. SISTER IS ON HER WAY AND PATIENT ANTICIPATES DISCHARGE TODAY. Screw Cutter: Zaira Forbes DCP- Discharge Planning Updated by [email or web address]: Zaira Forbes on 02/06/20 3:[address] Patient Name: NORI TINSLEY Admission Status: ER Accout number: [id number] Admission Date: 02-02-2020 : 1945 Admission Diagnosis: Attending: VIOLA Current LOS: 4 Anticipated DC Date: Planned Disposition: Primary Insurance: MEDICARE A & B Discharge Planning Comments: CM met with patient at bedside after explaining CM role and obtaining verbal consent. CM discussed availability / needs of home health, REHAB and medical equipment. PATIENT DENIES ANY DISCHARGE NEEDS AT THIS TIME. IMM SIGNED. WILL RECHECK WITH PATIENT CLOSER TO DC FOR ANY OTHER NEEDS. Screw Cutter: Zaira Forbes DCPIA - Discharge Planning Initial Assessment Updated by [email or web address]: Zaira Forbes on 02/06/20 4:25 pm * Is the patient Alert and Oriented? Yes * PCP ER[facility]SON * Pharmacy [facility] * Preadmission Environment Home with Family * ADLs Independent * Equipment None * Community resources currently utilized None * Additional services required to return to the preadmission environment? No * Can the patient safely return to the preadmission environment? Yes * Has this patient been hospitalized within the prior 30 days at any hospital? No Coverage Notice Reviewer: [email or web address] Devora Forbes Notice Issued Date-Time: 02/06/2020 16:45 Notice Type: IM Discharge Notice Notice Delivered To: Relationship to Patient: Business Asst Name: Delivery Method: HAND - Hand Delivered Nichole Days: Prior Verbal Notification: Recipient Understood Notice: Yes Recipient Signature: Yes Med Rec Note Co-signed by Attending: Coverage Notice Comment: Reviewer: [email or web address] Devora Forbes Notice Issued Date-Time: 02/09/2020 16:22 Notice Type: IM Discharge Notice Notice Delivered To: Patient Relationship to Patient: Business Asst Name: Delivery Method: HAND - Hand Delivered Nichole Days: Prior Verbal Notification: Recipient Understood Notice: Yes Recipient Signature: Yes Med Rec Note Co-signed by Attending: Coverage Notice Comment: Last DP export: 02/09/20 4:01 p Patient Name: NORI TINSLEY Page [phone] at 1007 All edits/amendments must be made on the electronic document DICTATION DATE: 02/10/20 1006 TREASURY REPRESENTATIVE: LEONARD 02/10/20 1006 RPT#: [id number] DC DATE:02/09/20 STATUS: DIS IN [facility] [address] [place] [address] END OF REPORT
== END 2020-02-09 17:58 | disposition home or self-care (01) | DRG 603 ==
LOC: D.ER 18:45 → D.MS 20:54
PROVIDERS: Family Medicine; ADMIT Family Medicine; ATTEND Family Medicine
DX: L03.115 Cellulitis of right lower limb (principal); D64.9 Anemia, unspecified; E87.6 Hypokalemia; I10 Essential (primary) hypertension; K21.9 Gastro-esophageal reflux disease without esophagitis; F41.9 Anxiety disorder, unspecified; M85.80 Other specified disorders of bone density and structure, unspecified site; E55.9 Vitamin D deficiency, unspecified; N39.41 Urge incontinence; Z85.3 Personal history of malignant neoplasm of breast

== ENCOUNTER → 2020-03-02 07:39 | Outpatient (CLI) | payer MEDICARE, OTHER ==
[2020-02-06 10:55] VITALS: BMI 31.9
[~2020-03-02 07:39] MED LIST changes: +DOXYCYCLINE HY100 M2 PO; +ULTRAM50 MG PO
== END | disposition home or self-care (01) ==
LOC: D.MRI 07:39
PROVIDERS: ATTEND Clinical Nurse Specialist Family Health
DX: S80.10XA Contusion of unspecified lower leg, initial encounter (principal)

== ENCOUNTER 2020-03-12 09:10 | Day surgery (SDC) | payer MEDICARE, OTHER ==
[2020-03-09 10:15] LABS: HEMATOCRIT 40.3 % (36.0-48.0); HEMOGLOBIN 12.6 g/dL (12-16); MCH 28.9 pg (26.0-34.0); MCHC 31.3 g/dL (31.0-37.0); MCV 92.4 fL (80.0-100.0); MEAN PLATELET VOLUME 9.7 fL (7.4-10.4); RBC 4.36 10x6/uL (4.00-5.40); RDW 13.8 % (11.5-14.5); WBC 5.9 10x3/uL (4.8-10.8)
[2020-03-09 10:30] LABS: CALC OSMOLALITY 278 mosm/kg (275-300); CALCIUM 8.7 mg/dL (8.5-10.1); CARBON DIOXIDE 28.7 mmol/L (21.0-32.0); CHLORIDE - SERUM 105 mmol/L (98-107); CREATININE - SERUM 0.7 mg/dL (0.6-1.3); GLUCOSE 112 mg/dL (74-106); POTASSIUM - SERUM 3.5 mmol/L (3.5-5.1); SODIUM 139 mmol/L (136-145); UREA NITROGEN 13 mg/dL (7-18); eGFR NON AFRICAN AMERICAN 87 mL/min (90-120)
[~2020-03-12] VITALS: Ht 147.3 cm; Wt 68.0 kg
[2020-03-12 10:04] VITALS: BP 164/78; Ht 147.3 cm; Wt 68.0 kg
[2020-03-12] MEDS ORDERED: PERCOCET 10-321 EAC1 PO (13:09)
--- NOTE | 2020-03-12 15:15 | NUR ---
DISCHARGE INSTRUCTIONS REVIEWED WITH PATIENT. DISCHARGED HOME VIA WHEELCHAIR TO PRIVATE VEHICLE WITH SISTER
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
== END 2020-03-12 15:15 | disposition home or self-care (01) ==
LOC: D.OPS 09:10 → D.PAN 11:00 → D.OPS 11:00 → D.PAN 12:00 → D.OPS 12:00
PROVIDERS: Anesthesiology; ATTEND Orthopaedic Surgery
DX: S80.11XA Contusion of right lower leg, initial encounter (principal); L03.90 Cellulitis, unspecified; I10 Essential (primary) hypertension

== ENCOUNTER → 2020-03-27 12:12 | Outpatient (CLI) | payer MEDICARE, OTHER ==
[2020-03-12 10:04] VITALS: BMI 31.4
[~2020-03-27 12:12] MED LIST changes: +PERCOCET 10-321 EAC1 PO
== END | disposition home or self-care (01) ==
LOC: D.US 12:12
PROVIDERS: ATTEND Orthopaedic Surgery
DX: R60.0 Localized edema (principal)